=== PATIENT | female | born 1960 | race Caucasian/White ===

== ENCOUNTER 2016-11-13 16:50 | Emergency (ER) | payer BC ==
[~2016-11-13] VITALS: Ht 162.6 cm; Wt 50.0 kg
[2016-11-13 17:10] VITALS: BP 110/62; PULSE 105; RESP 18; TEMP 99.6; O2SAT 98
[2016-11-13 19:49] LABS: BLOOD, URINE SMALL (NEG); GLUCOSE,URINE NEG (NEG); KETONE, URINE NEG (NEG); NITRITE,URINE NEG (NEG); PH, URINE 5.5 (5.0-8.5)
[2016-11-13 20:06] LABS: AUTOMATED NEUTROPHIL # 3.1 TH/MM3 (1.8-7.7); BASOPHIL # 0.1 TH/MM3 (0-0.2); BASOPHIL % 0.8 % (0.0-2.0); EOSINOPHIL # 0.1 TH/MM3 (0-0.4); EOSINOPHIL % 1.5 % (0.0-4.0); HEMATOCRIT 40.3 % (35.0-46.0); HEMO FLAGS DIFF FINAL; LYMPH % 39.5 % (9.0-44.0); LYMPHOCYTE # 2.5 TH/MM3 (1.0-4.8); MEAN CELL VOLUME 96.1 FL (80.0-100.0); MEAN CORPUSCULAR HEMOGLOBIN 32.9 PG (27.0-34.0); MEAN CORPUSCULAR HGB CONC 34.2 % (32.0-36.0); MONO % 8.5 % (0.0-8.0); NEUT % 49.7 % (16.0-70.0); PLATELET COUNT 246 TH/MM3 (150-450); RED BLOOD COUNT 4.19 MIL/MM3 (4.00-5.30); RED CELL DISTRIBUTION WIDTH 12.5 % (11.6-17.2); WHITE BLOOD COUNT 6.3 TH/MM3 (4.0-11.0)
[2016-11-13 20:08] LABS: METHOD OF COLLECTION CLEAN CATCH; URINE COLOR YELLOW (YELLW/STRAW)
[2016-11-13 20:09] LABS: BACTERIA, URINE OCC /hpf; COMMENT (UR) CULTURE INDICATED; CULTURE IF INDICATED CULTURE INDICATED; SQUAMOUS EPITHELIAL CELL URINE 0-5 /hpf (0-5); WBC, URINE 15-19 /hpf (0-5)
[2016-11-13 20:13] LABS: CHLORIDE 105 MEQ/L (98-107); POTASSIUM 4.2 MEQ/L (3.5-5.1); SODIUM (NA) 139 MEQ/L (136-145)
[2016-11-13 20:17] LABS: ANION GAP 9 MEQ/L (5-15); BICARBONATE 25.3 MEQ/L (21.0-32.0); BLOOD UREA NITROGEN 13 MG/DL (7-18)
[2016-11-13 20:20] LABS: ALT (GPT) 31 U/L (10-53); AST (GOT) 23 U/L (15-37); GLOMERULAR FILTRATION RATE 72 ML/MIN (>89)
[2016-11-13 20:22] LABS: TOTAL BILIRUBIN ADULT 0.2 MG/DL (0.2-1.0)
[2016-11-13 20:23] LABS: ALKALINE PHOSPHATASE 67 U/L (45-117)
[2016-11-13] MEDS ORDERED: CEPH-460 PO (23:06)
--- NOTE | 2016-11-13 23:07 | PD ---
HPI Chief Complaint: Abdominal Pain Time Seen by Provider: 22:34 Travel History International Travel<30 days: No Contact w/Intl Traveler<30days: No Traveled to known affect area: No History of Present Illness HPI This 55-year-old female says she been having abdominal pain for a couple weeks. Pain she has is mostly in the right upper quadrant. Is intermittent. It lasts up to 2 hours. She has not noticed any relationship to food. The pain can be quite severe. She had an episode today that lasted about 2 hours. She did vomit during the episode today. She has no history of hypertension. Last year she's had about 19 days in the hospital because of low blood pressure. She was tried on different medication but she refused to take omeprazole made her agitated. At the age of 4 years she had surgery on her bladder. She has been told recently that her bladder does not empty fully. She is not aware of fevers or chills. PFSH Past Medical History ?: Not LMP: [place]- Social History Tobacco Use: No Allergies-Medications (Allergen,Severity, Reaction): Coded Allergies: Codeine (Verified Allergy, Severe, Rash, 11/13/16) Furadantin (Verified Allergy, Severe, Hallucinations, 11/13/16) Reported Meds & Prescriptions Reported Meds & Active Scripts Active Reported Trazodone (Trazodone HCl) 300 Mg Tab 200 Mg PO HS Loratadine 10 Mg Tab Unknown Dose PO DAILY Protonix (Pantoprazole Sodium) 20 Mg Tab Unknown Dose PO DAILY Klonopin (Clonazepam) 0.5 Mg Tab Unknown Dose PO HS Review of Systems General / Constitutional: No: Fever, Chills Eyes: No: Diploplia HENT: No: Headaches, Vertigo, Lightheadedness Cardiovascular: No: Chest Pain or Discomfort, Palpitations Respiratory: No: Cough Gastrointestinal: Positive: Abdominal Pain Genitourinary: Positive: Pelvic Pain, No: Urgency, Frequency Musculoskeletal: No: Myalgias, Arthralgias Skin: No Rash Physical Exam Narrative GENERAL: Well-developed female SKIN: Warm and dry. HEAD: Atraumatic. Normocephalic. EYES: Pupils equal and round. No scleral icterus. No injection or drainage. ENT: No nasal bleeding or discharge. Mucous membranes pink and moist. NECK: Trachea midline. No JVD. CARDIOVASCULAR: Regular rate and rhythm. No murmur appreciated. RESPIRATORY: No accessory muscle use. Clear to auscultation. Breath sounds equal bilaterally. GASTROINTESTINAL: Abdomen soft, there are no abnormal masses. There is mild right upper quadrant abdominal tenderness. There is no guarding or rigidity. Bowel sounds are active MUSCULOSKELETAL: No obvious deformities. No clubbing. No cyanosis. No edema. NEUROLOGICAL: Awake and alert. No obvious cranial nerve deficits. Motor grossly within normal limits. Normal speech. PSYCHIATRIC: Appropriate mood and affect; insight and judgment normal. Data Data Last Documented VS Vital Signs Date Time Temp Pulse Resp B/P Pulse Ox O2 Delivery O2 Flow Rate FiO2 11/13/16 23:28 97.9 83 16 114/54 95 Room Air Orders Complete Blood Count With Diff (11/13/16 19:22) Comprehensive Metabolic Panel (11/13/16 19:22) Urinalysis - C+S If Indicated (11/13/16 19:22) Iv Access Insert/Monitor (11/13/16 19:22) Oxygen Administration (11/13/16 19:22) Oximetry (11/13/16 19:22) Lipase (11/13/16 19:22) Urine Culture (11/13/16 19:15) Ct Abd/Pel W Iv Contrast(Rout) (11/13/16 22:56) Iohexol 350 Inj (Omnipaque 350 Inj) (11/13/16 23:59) Labs Laboratory Tests Test 11/13/16 11/13/16 19:15 20:00 Urine Collection Type CLEAN CATCH Urine Color YELLOW Urine Turbidity CLEAR Urine pH 5.5 Urine Specific [place] 1.007 Urine Protein NEG mg/dL Urine Glucose (UA) NEG mg/dL Urine Ketones NEG mg/dL Urine Occult Blood SMALL Urine Nitrite NEG Urine Bilirubin NEG Urine Leukocyte Esterase LARGE Urine RBC 4-9 /hpf Urine WBC 15-19 /hpf Urine WBC Clumps OCC Urine Squamous Epithelial 0-5 /hpf Cells Urine Bacteria OCC /hpf Microscopic Urinalysis Comment CULTURE INDICATED White Blood Count 6.3 TH/MM3 Red Blood Count 4.19 MIL/MM3 Hemoglobin 13.8 GM/DL Hematocrit 40.3 % Mean Corpuscular Volume 96.1 FL Mean Corpuscular Hemoglobin 32.9 PG Mean Corpuscular Hemoglobin 34.2 % Concent Red Cell Distribution Width 12.5 % Platelet Count 246 TH/MM3 Mean Platelet Volume 7.6 FL Neutrophils (%) (Auto) 49.7 % Lymphocytes (%) (Auto) 39.5 % Monocytes (%) (Auto) 8.5 % Eosinophils (%) (Auto) 1.5 % Basophils (%) (Auto) 0.8 % Neutrophils # (Auto) 3.1 TH/MM3 Lymphocytes # (Auto) 2.5 TH/MM3 Monocytes # (Auto) 0.5 TH/MM3 Eosinophils # (Auto) 0.1 TH/MM3 Basophils # (Auto) 0.1 TH/MM3 CBC Comment DIFF FINAL Differential Comment Sodium Level 139 MEQ/L Potassium Level 4.2 MEQ/L Chloride Level 105 MEQ/L Carbon Dioxide Level 25.3 MEQ/L Anion Gap 9 MEQ/L Blood Urea Nitrogen 13 MG/DL Creatinine 0.82 MG/DL Estimat Glomerular Filtration 72 ML/MIN Rate Random Glucose 75 MG/DL Calcium Level 9.9 MG/DL Total Bilirubin 0.2 MG/DL Aspartate Amino Transf 23 U/L (AST/SGOT) Alanine Aminotransferase 31 U/L (ALT/SGPT) Alkaline Phosphatase 67 U/L Total Protein 7.1 GM/DL Albumin 3.8 GM/DL Lipase 153 U/L [facility] Medical Decision Making Medical Screen Exam Complete: Yes Emergency Medical Condition: Yes Medical Record Reviewed: Yes Differential Diagnosis Differential includes hepatitis, cholecystitis, UTI Narrative Course Patient's pain is atypical. The location is concerning for cholecystitis but her pain is not related to food. Her liver functions are normal and not consistent with hepatitis. She does have a urinary tract infection but I don't think that explains all of her symptoms I will plan on treating her urinary tract infection. I have ordered a CT scan to assess for reasons for this pain Diagnosis Primary Impression: Urinary tract infection Qualified Code: N30.00 - Acute cystitis without hematuria Disposition: DISCHARGE HOME Condition: Stable Ho Wilcox MD Nov 13, 2016 23:07 Ho Wilcox MD Nov 13, 2016 23:07
[2016-11-13] MEDS ORDERED: CLON.5 PO (23:15)
[2016-11-13] MEDS ORDERED: TRAZ300T2 PO (23:15)
[2016-11-13] MEDS ORDERED: PANT20 PO (23:15)
[2016-11-13] MEDS ORDERED: LORA10TA PO (23:15)
[2016-11-13 23:17] VITALS: RESP 16; O2SAT 96
[2016-11-13 23:28] VITALS: BP 114/54; PULSE 83; RESP 16; TEMP 97.9; O2SAT 95
[2016-11-13] MEDS ORDERED: IOHEXOL 350 MG/ML 10 ML VIAL (for RAD DIAG) IV ONE (23:59)
--- NOTE | 2016-11-14 00:06 | RADHPO ---
EXAM DATE/TIME: 11/13/2016 23:42 [facility] COMPARISON: No previous studies available for comparison. INDICATIONS : Abdominal pain. IV CONTRAST: 100 cc Omnipaque 350 (iohexol) IV ORAL CONTRAST: No oral contrast ingested. RADIATION DOSE: 4.45 CTDIvol (mGy) MEDICAL HISTORY : Carcinoma, not otherwise specified. Gastroesophageal reflux disease. Cardiovascular disease SURGICAL HISTORY : Appendectomy. Cholecystectomy. section.Gastrostomy tube. ENCOUNTER: Initial ACUITY: 4 - 6 days PAIN SCALE: 6/10 LOCATION: Bilateral Abdomen and pelvis. TECHNIQUE: Volumetric scanning of the abdomen and pelvis was performed. Using automated exposure control and ad justment of the mA and/or kV according to patient size, radiation dose was kept as low as reasonably achievable to obtain optimal diagnostic quality images. FINDINGS: There is an area of [id number] increased attenuation in the liver dome characteristic of transient hepatic attenuation difference. Gallbladder, spleen, pancreas, adrenal glands, kidneys are unremarka ble. No evidence of bowel obstruction. Urinary bladder, uterus and adnexal regions are unremarkable. The patient is status post appendectomy and cholecystectomy. A few atherosclerotic calcifications are noted at the level of the aorta. There is no adenopathy or aneurysm. The osseous structures are inta ct. Lung bases are clear. CONCLUSION: No acute disease. Feliberto Tobias MD on November 14, 2016 at 0:02 Board Certified Radiologist. This report was verified electronically.
[2016-11-14 00:51] VITALS: BP 116/60
[2016-11-15] MEDS ORDERED: MECL-62 PO (23:02)
[2016-11-15] MEDS ORDERED: PRED20 PO (23:02)
[2016-11-15] MEDS ORDERED: VENTAER INH (23:02)
== END 2016-11-14 00:30 | disposition home or self-care (01) ==
LOC: PHED 16:50
DX: N39.0 Urinary tract infection, site not specified (principal); R10.11 Right upper quadrant pain
CPT/HCPCS: 74177; 80053; 81001; 83690; 85025; 87086; 99284; Q9967

== ENCOUNTER 2016-11-15 19:32 | Emergency (ER) | payer BC ==
[~2016-11-15] VITALS: Ht 162.6 cm; Wt 50.0 kg
[~2016-11-15 19:32] MED LIST: CLON.5 PO; LORA10TA PO; PANT20 PO; TRAZ300T2 PO
[2016-11-15 20:06] VITALS: BP 105/53; PULSE 79; RESP 18; TEMP 96.9; O2SAT 96
[2016-11-15] MEDS ORDERED: SODIUM CHLOR 0.9% 1000 ML INJ 1,000 ML IV ONE (20:46)
--- NOTE | 2016-11-15 20:53 | PD ---
HPI Chief Complaint: General Weakness Time Seen by Provider: 20:30 Travel History International Travel<30 days: No Contact w/Intl Traveler<30days: No Traveled to known affect area: No History of Present Illness HPI 55yo F with PMH of depression on trazadone and klonopin presents to the ED with c/o generalized weakness since last week. Pt also feels the room spinning when she gets up. Had intermittent ringing in ear on right ear. +NBNB vomiting. Pt states she had similar episode when she had low blood pressure last time. Pt was seen at [place] 2 days ago for abdominal pain and was discharged with diagnosis of UTI and had negative CTa/p. Urine culture from that day is negative for growth. Pt does not have abdominal pain today. State she is a smoker and always short of breath and uses her friend's inhaler. Denies any fever, chest pain, diarrhea, focal weakness or numbness. PFSH Past Medical History Kidney Stones: Yes Seizures: Yes Influenza Vaccination: Yes ?: Not LMP: menapause Tubal Ligation: Yes Past Surgical History Genitourinary Surgery: Yes (BLADDER SX) Other Surgery: Yes (CARPEL TUNNEL SX, BREAST IMPLANTS) Social History Alcohol Use: No Tobacco Use: Yes (1PPD) Substance Use: No Allergies-Medications (Allergen,Severity, Reaction): Coded Allergies: Codeine (Verified Allergy, Severe, Rash, 11/15/16) Furadantin (Verified Allergy, Severe, Hallucinations, 11/15/16) Reported Meds & Prescriptions Reported Meds & Active Scripts Active Meclizine (Meclizine HCl) 25 Mg Tab 25 Mg PO TID PRN Prednisone 20 Mg Tab 20 Mg PO BID 5 Days Ventolin Hfa 18 GM Inh (Albuterol Sulfate) 90 Mcg/Act Aer 2 Puff INH Q4H PRN Reported Trazodone (Trazodone HCl) 300 Mg Tab 200 Mg PO HS Loratadine 10 Mg Tab Unknown Dose PO DAILY Protonix (Pantoprazole Sodium) 20 Mg Tab Unknown Dose PO DAILY Klonopin (Clonazepam) 0.5 Mg Tab Unknown Dose PO HS Review of Systems Except as stated in HPI: all other systems reviewed are Neg Physical Exam Narrative GENERAL: 55yo F not in distress. SKIN: Warm and dry. HEAD: Atraumatic. Normocephalic. EYES: Pupils equal and round. No scleral icterus. No injection or drainage. + Right horizontal nystagmus. ENT: TM wnl bilaterally. NECK: Trachea midline. No JVD. CARDIOVASCULAR: Regular rate and rhythm. No murmur appreciated. RESPIRATORY: No accessory muscle use. Expiratory wheezing bilaterally. GASTROINTESTINAL: Abdomen soft, non-tender, nondistended. No rebound tenderness or guarding. MUSCULOSKELETAL: No obvious deformities. No clubbing. No cyanosis. No edema. NEUROLOGICAL: Awake and alert. No obvious cranial nerve deficits. Motor grossly within normal limits. Normal speech. PSYCHIATRIC: Appropriate mood and affect; insight and judgment normal. Data Data Last Documented VS Vital Signs Date Time Temp Pulse Resp B/P Pulse Ox O2 Delivery O2 Flow Rate FiO2 11/15/16 22:10 73 16 105/66 11/15/16 21:42 97 Room Air 11/15/16 20:06 96.9 Orders Electrocardiogram (11/15/16 20:46) Basic Metabolic Panel (Bmp) (11/15/16 20:46) Complete Blood Count With Diff (11/15/16 20:46) Magnesium (Mg) (11/15/16 20:46) Ckmb (Isoenzyme) Profile (11/15/16 20:46) Troponin I (11/15/16 20:46) Chest, Single Ap (11/15/16 20:46) Ecg Monitoring (11/15/16 20:46) Iv Access Insert/Monitor (11/15/16 20:46) Oximetry (11/15/16 20:46) Meclizine (Antivert) (11/15/16 21:00) Ondansetron Inj (Zofran Inj) (11/15/16 21:00) Sodium Chloride 0.9% Flush (Ns Flush) (11/15/16 21:00) Sodium Chlor 0.9% 1000 Ml Inj (Ns 1000 M (11/15/16 20:46) Orthostatic Vital Signs (11/15/16 20:46) Methylprednisolone So Succ Inj (Solumedr (11/15/16 21:00) Albuterol-Ipratropium Neb (Duoneb Neb) (11/15/16 21:00) Labs Laboratory Tests Test 11/15/16 21:40 White Blood Count 6.2 TH/MM3 Red Blood Count 3.98 MIL/MM3 Hemoglobin 13.6 GM/DL Hematocrit 39.1 % Mean Corpuscular Volume 98.2 FL Mean Corpuscular Hemoglobin 34.1 PG Mean Corpuscular Hemoglobin 34.7 % Concent Red Cell Distribution Width 13.4 % Platelet Count 234 TH/MM3 Mean Platelet Volume 7.6 FL Neutrophils (%) (Auto) 45.4 % Lymphocytes (%) (Auto) 41.5 % Monocytes (%) (Auto) 10.7 % Eosinophils (%) (Auto) 1.5 % Basophils (%) (Auto) 0.9 % Neutrophils # (Auto) 2.8 TH/MM3 Lymphocytes # (Auto) 2.6 TH/MM3 Monocytes # (Auto) 0.7 TH/MM3 Eosinophils # (Auto) 0.1 TH/MM3 Basophils # (Auto) 0.1 TH/MM3 CBC Comment DIFF FINAL Differential Comment Sodium Level 137 MEQ/L Potassium Level 3.9 MEQ/L Chloride Level 103 MEQ/L Carbon Dioxide Level 23.3 MEQ/L Anion Gap 11 MEQ/L Blood Urea Nitrogen 14 MG/DL Creatinine 0.62 MG/DL Estimat Glomerular Filtration 100 ML/MIN Rate Random Glucose 61 MG/DL Calcium Level 10.2 MG/DL Magnesium Level 1.8 MG/DL Total Creatine Kinase 72 U/L Troponin I LESS THAN 0.02 NG/ML MDM Medical Decision Making Medical Screen Exam Complete: Yes Emergency Medical Condition: Yes Interpretation(s) EKG: NSR 76bpm. Normal axis. TWI V2. Q wave V2, V3. No ST segment elevation or depression. QTc 388ms. Last Impressions Chest X-Ray 11/15/162045 Signed Impressions: Service Date/Time: Tuesday, November 15, 2016 21:00 - CONCLUSION: No acute disease. Jonnie Hung MD Laboratory Tests Test 11/15/16 21:40 White Blood Count 6.2 TH/MM3 (4.0-11.0) Red Blood Count 3.98 MIL/MM3 (4.00-5.30) Hemoglobin 13.6 GM/DL (11.6-15.3) Hematocrit 39.1 % (35.0-46.0) Mean Corpuscular Volume 98.2 FL (80.0-100.0) Mean Corpuscular Hemoglobin 34.1 PG (27.0-34.0) Mean Corpuscular Hemoglobin 34.7 % Concent (32.0-36.0) Red Cell Distribution Width 13.4 % (11.6-17.2) Platelet Count 234 TH/MM3 (150-450) Mean Platelet Volume 7.6 FL (7.0-11.0) Neutrophils (%) (Auto) 45.4 % (16.0-70.0) Lymphocytes (%) (Auto) 41.5 % (9.0-44.0) Monocytes (%) (Auto) 10.7 % (0.0-8.0) Eosinophils (%) (Auto) 1.5 % (0.0-4.0) Basophils (%) (Auto) 0.9 % (0.0-2.0) Neutrophils # (Auto) 2.8 TH/MM3 (1.8-7.7) Lymphocytes # (Auto) 2.6 TH/MM3 (1.0-4.8) Monocytes # (Auto) 0.7 TH/MM3 (0-0.9) Eosinophils # (Auto) 0.1 TH/MM3 (0-0.4) Basophils # (Auto) 0.1 TH/MM3 (0-0.2) CBC Comment DIFF FINAL Differential Comment Sodium Level 137 MEQ/L (136-145) Potassium Level 3.9 MEQ/L (3.5-5.1) Chloride Level 103 MEQ/L (98-107) Carbon Dioxide Level 23.3 MEQ/L (21.0-32.0) Anion Gap 11 MEQ/L (5-15) Blood Urea Nitrogen 14 MG/DL (7-18) Creatinine 0.62 MG/DL (0.50-1.00) Estimat Glomerular Filtration 100 ML/MIN Rate (>89) Random Glucose 61 MG/DL (74-106) Calcium Level 10.2 MG/DL (8.5-10.1) Magnesium Level 1.8 MG/DL (1.5-2.5) Total Creatine Kinase 72 U/L (26-192) Troponin I LESS THAN 0.02 NG/ML (0.02-0.05) Differential Diagnosis Benign peripheral vertigo vs. orthostatic hypotension vs. electrolyte abnormality vs. arrhythmia vs. COPD exacerbation Narrative Course 55yo F with symptoms consistent with vertigo. Pt given meclizine, zofran and NS IVF and feels better. Pt no longer dizzy and wants to eat. Labs reviewed, no leukocytosis. H/H stable. Troponin negative. Glucose is low at 61, pt given food and juice. CXR showed no acute disease. Pt also received duonebsx 3 and methylprednisolone 60mg IV. Lungs clear bilaterally after treatment. Orthostatic negative. No longer sob and wants to go home. Return precautions given. Diagnosis Primary Impression: Vertigo Additional Impression: COPD exacerbation Patient Instructions: General Instructions Departure Forms: Tests/Procedures Additional Instructions: Please follow up with your PMD in 3-7 days. Return to the ED if symptoms worsen. Med/Other Pt SpecificInfo: Prescription(s) given Scripts Meclizine 25 Mg Tab25 Mg PO TID PRN (VERTIGO) #6 TAB Ref 0 Prov:Evangelina Conner DO 11/15/16 Prednisone 20 Mg Tab20 Mg PO BID 5 Days Ref 0 Prov:Evangelina Conner DO 11/15/16 Albuterol 18 GM Inh (Ventolin Hfa 18 GM Inh)90 Mcg/Act Aer2 Puff INH Q4H PRN ( SHORTNESS OF BREATH) #1 INHALER Ref 0 Prov:Evangelina Conner DO 11/15/16 Evangelina Conner DO Nov 15, 2016 20:53
[2016-11-15] MEDS ORDERED: methylPREDNISolone SOD SUCC 125 MG/2 ML VIAL IVP ONE (21:00)
[2016-11-15] MEDS ORDERED: SODIUM CHLORIDE 0.9% FLUSH 5 ML FLUSH IVF PRN (21:00)
[2016-11-15] MEDS ORDERED: MECLIZINE HCL 25 MG TAB PO ONE (21:00)
[2016-11-15] MEDS ORDERED: ONDANSETRON HCL 4 MG/2 ML VIAL IVP ONE (21:00)
[2016-11-15 21:42] VITALS: RESP 16; O2SAT 97
--- NOTE | 2016-11-15 21:43 | RADRPT ---
EXAM DATE/TIME: 11/15/2016 21:00 [facility] COMPARISON: No previous studies available for comparison. INDICATIONS : Short of breath. MEDICAL HISTORY : None. SURGICAL HISTORY : None. ENCOUNTER: Initial ACUITY: 2 days PAIN SCORE: 0/10 LOCATION: Bilateral chest FINDINGS: A single view of the chest demonstrates the lungs to be symmetrically aerated without evidence of mas s, infiltrate or effusion. The cardiomediastinal contours are unremarkable. Osseous structures are intact. CONCLUSION: No acute disease. Jonnie Hung MD on November 15, 2016 at 21:41 Board Certified Radiologist. This report was verified electronically.
[2016-11-15 22:09] VITALS: BP_SYST 110; BP_DIAS 60; BP_DIAS 62; RESP 16
[2016-11-15 22:10] VITALS: BP 105/66; RESP 16
[2016-11-15 22:29] LABS: AUTOMATED NEUTROPHIL # 2.8 TH/MM3 (1.8-7.7); BASOPHIL # 0.1 TH/MM3 (0-0.2); BASOPHIL % 0.9 % (0.0-2.0); EOSINOPHIL # 0.1 TH/MM3 (0-0.4); EOSINOPHIL % 1.5 % (0.0-4.0); HEMATOCRIT 39.1 % (35.0-46.0); HEMO FLAGS DIFF FINAL; LYMPH % 41.5 % (9.0-44.0); LYMPHOCYTE # 2.6 TH/MM3 (1.0-4.8); MEAN CELL VOLUME 98.2 FL (80.0-100.0); MEAN CORPUSCULAR HEMOGLOBIN 34.1 PG (27.0-34.0); MEAN CORPUSCULAR HGB CONC 34.7 % (32.0-36.0); MONO % 10.7 % (0.0-8.0); NEUT % 45.4 % (16.0-70.0); PLATELET COUNT 234 TH/MM3 (150-450); RED BLOOD COUNT 3.98 MIL/MM3 (4.00-5.30); RED CELL DISTRIBUTION WIDTH 13.4 % (11.6-17.2); WHITE BLOOD COUNT 6.2 TH/MM3 (4.0-11.0)
[2016-11-15 22:34] LABS: ANION GAP 11 MEQ/L (5-15); BICARBONATE 23.3 MEQ/L (21.0-32.0); BLOOD UREA NITROGEN 14 MG/DL (7-18); CHLORIDE 103 MEQ/L (98-107); GLOMERULAR FILTRATION RATE 100 ML/MIN (>89); MAGNESIUM 1.8 MG/DL (1.5-2.5); POTASSIUM 3.9 MEQ/L (3.5-5.1); SODIUM (NA) 137 MEQ/L (136-145)
[2016-11-15] MEDS: RESP: ALBUTEROL 2.5 MG/IPRATROPIUM 0.5 MG NEB (SCH) INH ×2 (22:37→22:38)
[2016-11-15 22:42] LABS: CREATINE KINASE 72 U/L (26-192)
[2016-11-15] MEDS ORDERED: PRED20 PO (23:02)
[2016-11-15] MEDS ORDERED: VENTAER INH (23:02)
[2016-11-15] MEDS ORDERED: MECL-62 PO (23:02)
[2016-11-15 23:44] VITALS: BP 118/63; TEMP 98.5
--- NOTE | 2016-11-16 08:16 | EKG ---
Date Performed: 11/15/2016 Time Performed: 21:19:37 PTAGE: 55 years EKG: Sinus rhythm Possible SEPTAL MYOCARDIAL INFARCTION ABNORMAL ECG NO PREVIOUS TRACING DOCTOR: Hesham Finnegan Interpretating Date/Time 11/16/2016 08:15:21
== END 2016-11-15 23:45 | disposition home or self-care (01) ==
LOC: NEDAMB 19:32 → NEPB 23:45
DX: R42 Dizziness and giddiness (principal); J44.1 Chronic obstructive pulmonary disease with (acute) exacerbation; R56.9 Unspecified convulsions; F17.210 Nicotine dependence, cigarettes, uncomplicated; Z88.5 Allergy status to narcotic agent
CPT/HCPCS: 71010; 80048; 82550; 83735; 84484; 85025; 93005; 94640; 94664; 96361; 96374; 96375; 99285; J2405; J2930; J7030

== ENCOUNTER 2016-12-01 13:09 | Emergency (ER) | payer BC ==
[~2016-12-01] VITALS: Ht 162.6 cm; Wt 50.0 kg
[~2016-12-01 13:09] MED LIST changes: +MECL-62 PO; +PRED20 PO; +VENTAER INH
[2016-12-01 13:33] VITALS: BP 104/64; PULSE 104; RESP 16; TEMP 98.5; O2SAT 95
[2016-12-01 16:02] VITALS: O2SAT 99
[2016-12-01 16:09] LABS: AUTOMATED NEUTROPHIL # 4.9 TH/MM3 (1.8-7.7); BASOPHIL # 0.1 TH/MM3 (0-0.2); EOSINOPHIL % 0.3 % (0.0-4.0); HEMATOCRIT 42.3 % (35.0-46.0); HEMO FLAGS DIFF FINAL; LYMPH % 18.7 % (9.0-44.0); LYMPHOCYTE # 1.2 TH/MM3 (1.0-4.8); MEAN CELL VOLUME 97.4 FL (80.0-100.0); MEAN CORPUSCULAR HEMOGLOBIN 33.7 PG (27.0-34.0); MEAN CORPUSCULAR HGB CONC 34.6 % (32.0-36.0); MONO % 5.6 % (0.0-8.0); NEUT % 74.4 % (16.0-70.0); PLATELET COUNT 249 TH/MM3 (150-450); RED BLOOD COUNT 4.34 MIL/MM3 (4.00-5.30); RED CELL DISTRIBUTION WIDTH 13.4 % (11.6-17.2); WHITE BLOOD COUNT 6.6 TH/MM3 (4.0-11.0)
[2016-12-01 16:17] LABS: CHLORIDE 98 MEQ/L (98-107); POTASSIUM 4.4 MEQ/L (3.5-5.1); SODIUM (NA) 137 MEQ/L (136-145)
[2016-12-01 16:21] LABS: ANION GAP 13 MEQ/L (5-15); BICARBONATE 26.3 MEQ/L (21.0-32.0); BLOOD UREA NITROGEN 8 MG/DL (7-18)
[2016-12-01 16:24] LABS: ALT (GPT) 53 U/L (10-53); AST (GOT) 58 U/L (15-37); GLOMERULAR FILTRATION RATE 85 ML/MIN (>89)
[2016-12-01 16:25] LABS: TOTAL BILIRUBIN ADULT 0.5 MG/DL (0.2-1.0)
[2016-12-01 16:27] LABS: ALKALINE PHOSPHATASE 71 U/L (45-117)
[2016-12-01 16:29] LABS: BLOOD, URINE TRACE (NEG); GLUCOSE,URINE NEG (NEG); KETONE, URINE TRACE mg/dL (NEG); NITRITE,URINE NEG (NEG)
[2016-12-01] MEDS ORDERED: PANTOPRAZOLE SODIUM 40 MG VIAL IV PUSH ONE (16:45)
[2016-12-01 16:47] LABS: METHOD OF COLLECTION CLEAN CATCH; URINE COLOR STRAW (YELLW/STRAW)
[2016-12-01 16:48] LABS: SQUAMOUS EPITHELIAL CELL URINE 0-2 /hpf (0-5); TRANSITIONAL EPI CELLS, URINE 0-2 /hpf; WBC, URINE 0-2 /hpf (0-5)
[2016-12-01 16:49] LABS: BACTERIA, URINE OCC /hpf; COMMENT (UR) CULTURE INDICATED; CULTURE IF INDICATED CULTURE INDICATED
--- NOTE | 2016-12-01 17:03 | PD ---
HPI Chief Complaint: Abdominal Pain Time Seen by Provider: 15:41 Travel History International Travel<30 days: No Contact w/Intl Traveler<30days: No Traveled to known affect area: No History of Present Illness HPI 55-year-old female presents with upper abdominal pain that is been present for a couple weeks. She states she was here before and diagnosed with a urinary tract infection. She states that she took her antibiotic like she should. She does note having a couple drinks today this morning. She denies other complaints but is a poor historian on initial exam. PFSH Past Medical History Kidney Stones: Yes Seizures: Yes Tetanus Vaccination: > 5 Years Influenza Vaccination: Yes ?: Not Tubal Ligation: Yes Past Surgical History Genitourinary Surgery: Yes (BLADDER SX) Other Surgery: Yes (CARPEL TUNNEL SX, BREAST IMPLANTS) Social History Alcohol Use: Yes Tobacco Use: Yes (1PPD) Substance Use: No Allergies-Medications (Allergen,Severity, Reaction): Coded Allergies: Codeine (Verified Allergy, Severe, Rash, 12/01/16) Furadantin (Verified Allergy, Severe, Hallucinations, 12/01/16) Reported Meds & Prescriptions Reported Meds & Active Scripts Active Reported Trazodone (Trazodone HCl) 300 Mg Tab 200 Mg PO HS Loratadine 10 Mg Tab Unknown Dose PO DAILY Protonix (Pantoprazole Sodium) 20 Mg Tab Unknown Dose PO DAILY Klonopin (Clonazepam) 0.5 Mg Tab Unknown Dose PO HS Review of Systems Except as stated in HPI: all other systems reviewed are Neg Physical Exam Narrative GENERAL: Well-nourished, well-developed patient. SKIN: Warm and dry. HEAD: Normocephalic and atraumatic. EYES: No injection or drainage. ENT: No nasal drainage noted. NECK: Supple, trachea midline. CARDIOVASCULAR: Regular rate and rhythm RESPIRATORY: No increased effort. No accessory muscle use. GASTROINTESTINAL: Abdomen soft, non-tender, nondistended. EXTREMITIES: No edema. BACK: Nontender without obvious deformity. NEUROLOGICAL: Awake and alert. Motor and sensory grossly within normal limits. Slurred speech. Data Data Last Documented VS Vital Signs Date Time Temp Pulse Resp B/P Pulse Ox O2 Delivery O2 Flow Rate FiO2 12/01/16 16:02 99 Room Air 12/01/16 13:33 98.5 104 16 104/64 Orders Complete Blood Count With Diff (12/01/16 15:41) Comprehensive Metabolic Panel (12/01/16 15:41) Urinalysis - C+S If Indicated (12/01/16 15:41) Lipase (12/01/16 15:41) Iv Access Insert/Monitor (12/01/16 15:41) Oximetry (12/01/16 15:41) Alcohol (Ethanol) (12/01/16 15:41) Pantoprazole Inj (Protonix Inj) (12/01/16 16:45) Urine Culture (12/01/16 15:45) Labs Laboratory Tests Test 12/01/16 12/01/16 15:45 16:00 Urine Collection Type CLEAN CATCH Urine Color STRAW Urine Turbidity CLEAR Urine pH 6.0 Urine Specific [place] 1.010 Urine Protein NEG mg/dL Urine Glucose (UA) NEG mg/dL Urine Ketones TRACE mg/dL Urine Occult Blood TRACE Urine Nitrite NEG Urine Bilirubin NEG Urine Leukocyte Esterase NEG Urine WBC 0-2 /hpf Urine WBC Clumps OCC Urine Squamous Epithelial 0-2 /hpf Cells Urine Transitional Epithelial 0-2 /hpf Cells Urine Bacteria OCC /hpf Microscopic Urinalysis Comment CULTURE INDICATED White Blood Count 6.6 TH/MM3 Red Blood Count 4.34 MIL/MM3 Hemoglobin 14.6 GM/DL Hematocrit 42.3 % Mean Corpuscular Volume 97.4 FL Mean Corpuscular Hemoglobin 33.7 PG Mean Corpuscular Hemoglobin 34.6 % Concent Red Cell Distribution Width 13.4 % Platelet Count 249 TH/MM3 Mean Platelet Volume 7.5 FL Neutrophils (%) (Auto) 74.4 % Lymphocytes (%) (Auto) 18.7 % Monocytes (%) (Auto) 5.6 % Eosinophils (%) (Auto) 0.3 % Basophils (%) (Auto) 1.0 % Neutrophils # (Auto) 4.9 TH/MM3 Lymphocytes # (Auto) 1.2 TH/MM3 Monocytes # (Auto) 0.4 TH/MM3 Eosinophils # (Auto) 0.0 TH/MM3 Basophils # (Auto) 0.1 TH/MM3 CBC Comment DIFF FINAL Differential Comment Sodium Level 137 MEQ/L Potassium Level 4.4 MEQ/L Chloride Level 98 MEQ/L Carbon Dioxide Level 26.3 MEQ/L Anion Gap 13 MEQ/L Blood Urea Nitrogen 8 MG/DL Creatinine 0.71 MG/DL Estimat Glomerular Filtration 85 ML/MIN Rate Random Glucose 72 MG/DL Calcium Level 10.4 MG/DL Total Bilirubin 0.5 MG/DL Aspartate Amino Transf 58 U/L (AST/SGOT) Alanine Aminotransferase 53 U/L (ALT/SGPT) Alkaline Phosphatase 71 U/L Total Protein 7.5 GM/DL Albumin 4.3 GM/DL Lipase 165 U/L Ethyl Alcohol Level 298 MG/DL [facility] Medical Decision Making Medical Screen Exam Complete: Yes Emergency Medical Condition: Yes Medical Record Reviewed: Yes (past history confirm, beginning of month with normal blood work and CAT scan, urine culture negative, visit after that for vertigo) Interpretation(s) CBC & BMP Diagram 12/01/16 16:00 alcohol level is 298 Differential Diagnosis Gastritis, pancreatitis, stone, intoxication Narrative Course Will check blood work, urinalysis and dose with Protonix and IV fluids and reevaluate Blood work is normal other than alcohol intoxication, will monitor till sober patient has a ride here who will watch over patient and he feels comfortable with this, patient denies new complaints and is ready to go, given return instructions Diagnosis Primary Impression: Alcohol intoxication Qualified Code: F10.120 - Alcohol intoxication, uncomplicated Additional Impression: Abdominal pain Qualified Code: R10.9 - Abdominal pain, unspecified location Patient Instructions: General Instructions Additional Instructions: return as needed, limit alcohol use, follow with primary, tylenol as needed Med/Other Pt SpecificInfo: No Change to Meds Disposition: 01 DISCHARGE HOME Condition: Stable Casandra Khan MD Dec 01, 2016 17:02
== END 2016-12-01 17:33 | disposition home or self-care (01) ==
LOC: PHED 13:09 → PHEFT 17:33
DX: F10.120 Alcohol abuse with intoxication, uncomplicated (principal); R10.10 Upper abdominal pain, unspecified; Y90.8 Blood alcohol level of 240 mg/100 ml or more; Z87.440 Personal history of urinary (tract) infections
CPT/HCPCS: 80053; 80320; 81001; 83690; 85025; 87086; 96374; 99284; C9113